=== PATIENT | female | born 1950 | race Caucasian/White ===

== ENCOUNTER 2021-12-05 10:13 | Emergency (ER) | payer OTHER, BC ==
[2021-12-05] MEDS ORDERED: TYLENOL 325 MG PO ONE (10:40)
[2021-12-05] MEDS ORDERED: Sodium Chloride 0.9% 1000 ML 1,000 ML IV STA (10:40)
[2021-12-05] MEDS ORDERED: DECADRON 10MG INJ. IV ONE (10:43)
[2021-12-05 11:01] LABS: Absolute Neutrophil Ct (ANC) 2.75 (1.4-6.9); Basophil (Absolute #) 0.02 (0-0.4); Eosinophil % 0.2 % (0.00-5.0); Eosinophil (Absolute #) 0.01 (0-0.5); Hematocrit 42.5 % (35-47); Hemoglobin 14.8 gm/dl (12.0-16.0); Lymphocytes % 25.1 % (24.0-44.0); Mean Cell Volume 88.7 fl (78-100); Mean Corpuscular Hemoglobin 30.9 pg (26-32); Mean Corpuscular Hgb Concent. 34.8 g/dl (32-36); Mean Platelet Volume 9.1 fl (7.5-11.0); Monocytes % 16.7 % (0.0-12.0); Neutrophil % 57.6 % (36.0-66.0); Platelet Count 306 K/mm3 (150-450); Red Blood Count 4.79 M/mm3 (4.1-5.4); Red Cell Distribution Width 13.2 % (11.5-14.0); White Blood Count 4.8 K/mm3 (4.0-10.5)
--- NOTE | 2021-12-05 11:04 | ERPHSYRPT ---
- History of Present Illness Time Seen by Provider: 12/05/21 10:20 Source: patient Exam Limitations: no limitations Patient Subjective Stated Complaint: "I feel terrible and my stomach hurts." Triage Nursing Assessment: Patient reported new onset of cough, mild dyspnea, abdominal pain with nausea, vomiting, and one episode of diarrhea. Denied chest pain, headache, dizziness, visual disturbances. Symptom onset was 11/24/21 with a positive home COVID test on 11/28/21. She has been around other contacts with similar symptoms. Pupils 3mm bilateral. Oral mucosa pink/dry without ulcerations/lesions. Symmetrical chest expansion. heart tones S1/S2 RRR without extra sounds. Lungs vesicular with adequate airflow. Abdomen obese non-distened with tenderness to the RUQ/RLQ without intentional/unintentional guarding, palpable organomegaly or pulsatile masses. Peripheral puleses +3 bilateral. No noted dependent edema. Physician History: Patient is a 71-year-old female presents to our ED for evaluation of feeling unwell. Patient complains of diffuse abdominal pain associated with nausea and vomiting. Patient states she has been coughing and experiencing shortness of breath. Patient advises that she tested positive for COVID 1 week ago. Patient has been experiencing the symptoms since her Covid diagnosis. Symptoms are progressive. Symptoms are moderate in intensity. No specific worsening or improving factors. Patient denies history of the same. Patient voices no other complaints or concerns at this time. Timing/Duration: week(s) Severity: moderate Modifying Factors: Improves With: nothing Associated Symptoms: nausea, vomiting, abdominal pain, shortness of breath, cough Allergies/Adverse Reactions: No Known Drug Allergies Allergy (Unverified 12/05/21 10:31) Home Medications: Lisinopril/Hydrochlorothiazide [Lisinopril-Hctz 20-25 mg Tab] 1 tab PO DAILY 12/05/21 [History] Hx Tetanus, Diphtheria Vaccination/Date Given: No Hx Influenza Vaccination/Date Given: No Hx Pneumococcal Vaccination/Date Given: No Immunizations Up to Date: No Travel Risk - International Travel Have you traveled outside of the country in past 3 weeks: No - Coronavirus Screening Are you exhibiting any of the following symptoms?: No Symptoms: Cough: New Onset, Vomiting/Diarrhea, Headaches/Body Aches/Fatigue Close contact with a COVID-19 positive Pt in past 14-21 Days: No - Vaccine Status Have you recieved a Covid-19 vaccination: No - Review of Systems Constitutional: No Symptoms, No Fever, No Chills Eyes: No Symptoms Ears, Nose, & Throat: No Symptoms Respiratory: No Symptoms, No Cough, No Dyspnea Cardiac: No Symptoms, No Chest Pain, No Edema, No Syncope Abdominal/Gastrointestinal: No Symptoms, No Abdominal Pain, No Nausea, No Vomiting, No Diarrhea Genitourinary Symptoms: No Symptoms, No Dysuria Musculoskeletal: No Symptoms, No Back Pain, No Neck Pain Skin: No Symptoms, No Rash Neurological: No Symptoms, No Dizziness, No Focal Weakness, No Sensory Changes Psychological: No Symptoms Endocrine: No Symptoms Hematologic/Lymphatic: No Symptoms Immunological/Allergic: No Symptoms All Other Systems: Reviewed and Negative - Past Medical History Cardiac History: Hypertension Endocrine Medical History: Hyperthyroidism - Past Surgical History Musculoskeletal: Orthopedic Surgery Female Surgical History: Hysterectomy Other Surgical History: Partial thyroidectomy - Social History Smoking Status: Never smoker Exposure to second hand smoke: No Drug Use: none Patient Lives Alone: Yes - Nursing Vital Signs Nursing Vital Signs: Initial Vital Signs Temperature 98.5 F 12/05/21 10:14 Pulse Rate 83 12/05/21 10:14 Respiratory Rate 18 12/05/21 10:14 Blood Pressure 130/89 12/05/21 10:14 O2 Sat by Pulse Oximetry 99 12/05/21 10:14 Pain Scale Pain Intensity 2 - Physical Exam General Appearance: no apparent distress, alert Eye Exam: PERRL/EOMI, eyes nml inspection Ears, Nose, Throat Exam: normal ENT inspection, TMs normal, pharynx normal, moist mucous membranes Neck Exam: normal inspection, non-tender, supple, full range of motion Respiratory Exam: normal breath sounds, lungs clear, airway intact, No respiratory distress Cardiovascular Exam: regular rate/rhythm, normal heart sounds, normal peripheral pulses Gastrointestinal/Abdomen Exam: soft, normal bowel sounds, No tenderness, No mass Back Exam: normal inspection, normal range of motion, No CVA tenderness, No vertebral tenderness Extremity Exam: normal inspection, normal range of motion, pelvis stable Neurologic Exam: alert, oriented x 3, cooperative, normal mood/affect, nml cerebellar function, nml station & gait, sensation nml, No motor deficits Skin Exam: normal color, warm, dry, No rash Lymphatic Exam: No adenopathy SpO2 Interpretation: normal SpO2: 99 O2 Delivery: Room Air - Course Nursing assessment & vital signs reviewed: Yes EKG Interpreted by Me: RATE (77), Sinus Rhythm, NORMAL AXIS, NORMAL INTERVALS - Radiology Exams Chest X-ray Interpretation: Teleradiologist Report (Right base calcified granuloma. Remaining heart and lungs unremarkable. Bony thorax intact with osteopenia. D egenerative changes and left shoulder surgery.) - CT Exams Abdomen/Pelvis CT Interpretation: Tele-radiologist Report (Mild distended gallbladder. Small hiatal hernia sigmoid diverticulosis chronic bony findings and old granulomatous disease. Remaining CT abdomen pelvis without contrast exam is negative) - Radiology Ultrasound Exam Gallbladder Ultrasound: tele radiology report (Gallbladder normally distended no gallstones. No wall thickening or pericholecystic fluid. Common bile duct measures 6 mm. No intrahepatic biliary distention.) Ordered Tests: Active Orders 24 hr Category Date Time Status EKG-ER Only STAT Care 12/05/21 10:40 Active IV Insertion STAT Care 12/05/21 10:40 Active ABDOMEN AND PELVIS W/0 CONTRAS [CT] Stat Exams 12/05/21 10:40 Completed CHEST 1 VIEW (PORTABLE) Stat Exams 12/05/21 10:40 Completed GALLBLADDER [US] Stat Exams 12/05/21 12:15 Completed CBC W DIFF Stat Lab 12/05/21 10:52 Completed CMP Stat Lab 12/05/21 10:52 Completed COVID AG-BINAX NOW RAPID TEST Stat Lab 12/05/21 13:40 Received LIPASE Stat Lab 12/05/21 10:52 Completed TROPONIN Q3H Lab 12/05/21 10:52 Completed TROPONIN Q3H Lab 12/05/21 13:40 Completed TROPONIN Q3H Lab 12/05/21 16:45 Ordered TROPONIN Q3H Lab 12/05/21 19:45 Ordered TROPONIN Q3H Lab 12/05/21 22:45 Ordered UA W/RFX UR CULTURE Stat Lab 12/05/21 10:40 Ordered Medication Summary Discontinued Medications Generic Name Dose Route Start Last Admin Trade Name Freq PRN Reason Stop Dose Admin Acetaminophen 975 mg 12/05/21 10:40 12/05/21 11:11 Acetaminophen 325 Mg Tablet PO 12/05/21 10:41 975 mg STAT ONE Administration Acetaminophen Confirm 12/05/21 11:08 Acetaminophen 325 Mg Tablet Administered 12/05/21 11:09 Dose 975 mg .ROUTE .STK-MED ONE Dexamethasone Sodium Phosphate 8 mg 12/05/21 10:43 12/05/21 11:11 Dexamethasone Sod Phosphate 10 Mg/Ml IV 12/05/21 10:44 8 mg STAT ONE Administration Dexamethasone Sodium Phosphate Confirm 12/05/21 11:08 Dexamethasone Sod Phosphate 10 Mg/Ml Administered 12/05/21 11:09 Dose 10 mg .ROUTE .STK-MED ONE Sodium Chloride 1,000 mls @ 999 mls/hr 12/05/21 10:40 12/05/21 12:17 Sodium Chloride 0.9% 1000 Ml IV 12/05/21 11:40 Infused .Q1H1M STA Infusion Sodium Chloride Confirm 12/05/21 11:08 Sodium Chloride 0.9% 1000 Ml Administered 12/05/21 11:09 Dose 1,000 mls @ ud .ROUTE .STK-MED ONE Ondansetron HCl 4 mg 12/05/21 11:07 12/05/21 11:11 Ondansetron Hcl 4 Mg/2 Ml Vial IV 12/05/21 11:08 4 mg STAT ONE Administration Ondansetron HCl Confirm 12/05/21 11:08 Ondansetron Hcl 4 Mg/2 Ml Vial Administered 12/05/21 11:09 Dose 4 mg .ROUTE .STK-MED ONE Lab/Rad Data: Laboratory Result Diagrams 12/05/21 10:52 12/05/21 10:52 Laboratory Results 12/05/21 12/05/21 12/05/21 Range/Units 13:40 10:52 10:52 WBC (4.0-10.5) K/mm3 RBC (4.1-5.4) M/mm3 Hgb (12.0-16.0) gm/dl Hct (35-47) % MCV (78-100) fl MCH (26-32) pg MCHC (32-36) g/dl RDW (11.5-14.0) % Plt Count (150-450) K/mm3 MPV (7.5-11.0) fl Gran % (36.0-66.0) % Eos # (Auto) (0-0.5) Absolute Lymphs (auto) (1.0-4.6) Absolute Monos (auto) (0.0-1.3) Lymphocytes % (24.0-44.0) % Monocytes % (0.0-12.0) % Eosinophils % (0.00-5.0) % Basophils % (0.0-0.4) % Absolute Granulocytes (1.4-6.9) Basophils # (0-0.4) Sodium (137-145) mmol/L Potassium (3.5-5.1) mmol/L Chloride (98-107) mmol/L Carbon Dioxide (22-30) mmol/L Anion Gap (5-15) MEQ/L BUN (7-17) mg/dL Creatinine (0.52-1.04) mg/dL Estimated GFR ML/MIN Glucose (74-106) mg/dL Calcium (8.4-10.2) mg/dL Total Bilirubin (0.2-1.3) mg/dL AST (14-36) U/L ALT (0-35) U/L Alkaline Phosphatase (38-126) U/L Troponin I < 0.012 < 0.012 (0.000-0.034) ng/mL Serum Total Protein (6.3-8.2) g/dL Albumin (3.5-5.0) g/dL Lipase 97 (23-300) U/L 12/05/21 12/05/21 Range/Units 10:52 10:52 WBC 4.8 (4.0-10.5) K/mm3 RBC 4.79 (4.1-5.4) M/mm3 Hgb 14.8 (12.0-16.0) gm/dl Hct 42.5 (35-47) % MCV 88.7 (78-100) fl MCH 30.9 (26-32) pg MCHC 34.8 (32-36) g/dl RDW 13.2 (11.5-14.0) % Plt Count 306 (150-450) K/mm3 MPV 9.1 (7.5-11.0) fl Gran % 57.6 (36.0-66.0) % Eos # (Auto) 0.01 (0-0.5) Absolute Lymphs (auto) 1.20 (1.0-4.6) Absolute Monos (auto) 0.80 (0.0-1.3) Lymphocytes % 25.1 (24.0-44.0) % Monocytes % 16.7 H (0.0-12.0) % Eosinophils % 0.2 (0.00-5.0) % Basophils % 0.4 (0.0-0.4) % Absolute Granulocytes 2.75 (1.4-6.9) Basophils # 0.02 (0-0.4) Sodium 131 L (137-145) mmol/L Potassium 3.9 (3.5-5.1) mmol/L Chloride 95 L (98-107) mmol/L Carbon Dioxide 21 L (22-30) mmol/L Anion Gap 18.5 H (5-15) MEQ/L BUN 17 (7-17) mg/dL Creatinine 0.97 (0.52-1.04) mg/dL Estimated GFR > 60.0 ML/MIN Glucose 124 H (74-106) mg/dL Calcium 9.8 (8.4-10.2) mg/dL Total Bilirubin 1.40 H (0.2-1.3) mg/dL AST 28 (14-36) U/L ALT 21 (0-35) U/L Alkaline Phosphatase 102 (38-126) U/L Troponin I (0.000-0.034) ng/mL Serum Total Protein 7.4 (6.3-8.2) g/dL Albumin 4.5 (3.5-5.0) g/dL Lipase (23-300) U/L - Progress Progress: improved Progress Note: Patient reassessed. She is well. Covid test negative. Patient is ready for discharge. CT abdomen pelvis negative. Chest x-ray essentially nonremarkable. IV fluids infused to address the hyponatremia. No further work-up indicated. Patient agrees to follow-up with primary care doctor within 48 hours for evaluation. Portions of this note were created with voice recognition technology. There may be grammatical, spelling, punctuation or sound alike errors 12/05/21 14:28 Counseled pt/family regarding: lab results, diagnosis, rad results - Departure Departure Disposition: Observation Clinical Impression: Hyponatremia, Total bilirubin, elevated, Abdominal pain, Small hiatal hernia, Right axillary calcified lymph node, Diverticulosis, Osteopenia, Arthritis of spine, Lung granuloma, Viral syndrome Condition: Stable Critical Care Time: No Referrals: NATHALIE JONES [NON-STAFF PHY W/O PRIVILEGES] - Follow up/PCP as directed Instructions: Acute Abdomen (Belly Pain), Adult (DC) Additional Instructions: Discharge/Care Plan FRITZ VILA was seen on 12/05/21 in the Emergency Room. The patient was counseled regarding Diagnosis,Lab results, Imaging studies, need for follow up and when to return to the Emergency Room. Prescriptions given: Discharge Note I have spoken with the patient and/or caregivers. I have explained the patient's condition, diagnosis and treatment plan based on the information available to me at this time. I have answered the patient's and/or caregiver's questions and addressed any concerns. The patient and/or caregivers have as good understanding of the patient's diagnosis, condition and treatment plan as can be expected at this point. The vital signs have been stable. The patient's condition is stable and appropriate for discharge from the emergency department. The patient will pursue further outpatient evaluation with the primary care physician or other designated or consulting physician as outlined in the discharge instructions. The patient and/or caregivers are agreeable to this plan of care and follow-up instructions have been explained in detail. The patient and/or caregivers have received these instruction. The patient/and or caregivers are aware that any significant change in condition or worsening of symptoms should prompt an immediate return to this or the closest emergency department or call 911.
[2021-12-05] MEDS ORDERED: Zofran 4 MG/2 ML VIAL IV ONE (11:07)
[2021-12-05] MEDS ORDERED: Zofran 4 MG/2 ML VIAL ONE (11:08)
[2021-12-05] MEDS ORDERED: TYLENOL 325 MG ONE (11:08)
[2021-12-05] MEDS ORDERED: Sodium Chloride 0.9% 1000 ML 1,000 ML ONE (11:08)
[2021-12-05] MEDS ORDERED: DECADRON 10MG INJ. ONE (11:08)
[2021-12-05 11:14] LABS: ALBUMIN 4.5 g/dL (3.5-5.0); ALKALINE PHOSPHATASE 102 U/L (38-126); ANION GAP 18.5 MEQ/L (5-15); BLOOD UREA NITROGEN 17 mg/dL (7-17); CHLORIDE 95 mmol/L (98-107); Calcium 9.8 mg/dL (8.4-10.2); Carbon Dioxide 21 mmol/L (22-30); Creatinine 1 0.97 mg/dL (0.52-1.04); EST GLOMERULAR FILTRATION RATE > 60.0 ML/MIN; Glucose 124 mg/dL (74-106); Potassium 3.9 mmol/L (3.5-5.1); SGOT/AST 28 U/L (14-36); SGPT/ALT 21 U/L (0-35); SODIUM 131 mmol/L (137-145); Total Protein 7.4 g/dL (6.3-8.2)
--- NOTE | 2021-12-05 11:42 | XRAY ---
Indication: Cough 12 days. Comparison: None Portable apical lordotic chest demonstrates small right base calcified granuloma. Remaining heart and lungs unremarkable. Bony thorax intact with osteopenia, degenerative changes, and left shoulder surgery.
--- NOTE | 2021-12-05 11:48 | XRAY ---
Indication: Right abdomen pain 12 days. Intermittent diarrhea. Multiple contiguous axial images obtained through the abdomen and pelvis without contrast. Comparison: None Lung bases demonstrates minimal subsegmental atelectasis/scarring. No infiltrate or effusion. Heart is not enlarged. Small hiatal hernia. 1.2 cm chunky right axilla calcified node presumed granulomatous. Noncontrasted stomach and bowel loops appear nonobstructed with normal appendix. Minimal sigmoid diverticulosis without diverticulitis. Previous hysterectomy. No free fluid/air. Gallbladder mildly distended without gallstones or biliary distention. Tiny splenic calcified granulomas. Remaining liver, gallbladder, pancreas, spleen, adrenal glands, kidneys, ureters, and bladder are unremarkable for noncontrast exam. Moderate scattered aortoiliac calcifications without AAA. Osseous structures intact with mild osteopenia, mild/moderate multilevel thoracolumbar degenerative spondylosis, and minimal levoscoliosis centered at L2. Impression: 1. Mild distended gallbladder. Sonogram may yield further information if clinically warranted. 2. Small hiatal hernia, sigmoid diverticulosis, chronic bony findings, and old granulomatous disease. 3. Remaining CT abdomen/pelvis without contrast exam is negative.
--- NOTE | 2021-12-05 12:57 | XRAY ---
Indication: Right upper quadrant pain. Nausea and vomiting Two-dimensional gallbladder sonogram performed. Comparison: None Gallbladder normally distended without gallstones, wall thickening, or pericholecystic fluid. Common bile duct measures 6 mm. No intrahepatic biliary distention. Remaining visualized liver, pancreas, and right kidney are sonographically unremarkable. No ascites. Right kidney measures 11.5 cm in length. Impression: Negative gallbladder sonogram.
[2021-12-05 13:55] VITALS: BP 131/87; PULSE 80
[2021-12-05 14:29] LABS: COVID AG -BINAX NOW RAPID TEST NEGATIVE (NEGATIVE)
[2021-12-05 14:30] VITALS: O2SAT 99
== END 2021-12-05 14:24 | disposition home or self-care (01) ==
LOC: ED 10:13
DX: B34.9 Viral infection, unspecified (principal); E87.1 Hypo-osmolality and hyponatremia; E80.6 Other disorders of bilirubin metabolism; R10.9 Unspecified abdominal pain; K44.9 Diaphragmatic hernia without obstruction or gangrene; I89.8 Other specified noninfective disorders of lymphatic vessels and lymph nodes; K57.30 Diverticulosis of large intestine without perforation or abscess without bleeding; M85.88 Other specified disorders of bone density and structure, other site; M47.819 Spondylosis without myelopathy or radiculopathy, site unspecified; J84.10 Pulmonary fibrosis, unspecified; R11.2 Nausea with vomiting, unspecified; R05.9 Cough, unspecified; R06.02 Shortness of breath; I10 Essential (primary) hypertension; Z79.899 Other long term (current) drug therapy
CPT/HCPCS: 36000; 36415; 71045; 74176; 76705; 80053; 83690; 84484; 85025; 93005; 96360; 96374; 96375; 99000; 99285; J1100; J2405; A9270-GY

== ENCOUNTER 2024-05-28 18:57 | Emergency (ER) | payer OTHER, BC ==
[2024-05-28 19:37] VITALS: TEMP 97.5
[2024-05-28 19:40] LABS: Absolute Neutrophil Ct (ANC) 4.34 x10^3/uL (1.56-6.13); BASOPHIL % 1.4 % (0.1-1.2); Eosinophil % 2.5 % (0.7-5.8); Eosinophil (Absolute #) 0.18 x10^3/uL (0.04-0.36); Hematocrit 38.7 % (34.1-44.9); Hemoglobin 12.8 g/dL (11.2-15.7); IMMATURE GRAN # 0.03 x10^3u/L (0.001-0.031); IMMATURE GRAN % 0.4 % (0.001-0.429); Lymphocyte (Absolute #) 1.88 x10^3/uL (1.18-3.74); Lymphocytes % 26.4 % (19.3-51.7); Mean Cell Volume 91.9 fL (79.4-94.8); Mean Corpuscular Hemoglobin 30.4 pg (25.6-32.2); Mean Corpuscular Hgb Concent. 33.1 g/dL (32.2-35.5); Mean Platelet Volume 9.3 fL (9.4-12.3); Monocyte (Absolute #) 0.58 x10^3/uL (0.24-0.86); Monocytes % 8.2 % (4.7-12.5); Neutrophil % 61.1 % (34.0-71.1); Platelet Count 212 x10^3/uL (182-369); Red Blood Count 4.21 x10^6/uL (3.93-5.22); Red Cell Distribution Width 14.1 % (11.7-14.4); White Blood Count 7.1 x10^3/uL (3.98-10.04)
[2024-05-28 19:53] LABS: ALBUMIN 4.2 g/dL (3.5-5.0); ANION GAP 10.9 MEQ/L (5-15); BILIRUBIN,TOTAL 0.7 mg/dL (0.2-1.3); Calcium 9.6 mg/dL (8.4-10.2); Creatinine 1 0.72 mg/dL (0.52-1.04); EST GLOMERULAR FILTRATION RATE 89.3 ML/MIN; Potassium 3.5 mmol/L (3.5-5.1); Total Protein 6.9 g/dL (6.3-8.2)
--- NOTE | 2024-05-28 19:55 | ERPHSYRPT ---
- History of Present Illness Time Seen by Provider: 05/28/24 19:30 Source: patient Exam Limitations: no limitations Patient Subjective Stated Complaint: pt states that while at work she felt her legs begin to swell Triage Nursing Assessment: pt ambulated into the er; pt is axo x4; c/o swelling; pt denies pain; non-pitting edema present to BLE; strong jose radial pulses; strong jose pedal pulses; clear apical heart tone; clear lung sounds in all l obes; no respiratory distress present; hypertensive Physician History: 73-year-old female presents to our ED for evaluation of leg swelling. Patient states that she has not taken her blood pressure medication in several days. Today while at work patient observed leg swelling. No associated chest pain or shortness of breath. No nausea vomiting or diaphoresis. Symptoms have been progressive. Symptoms are moderate in intensity. No specific worsening or improving factors. Patient denies history of the same. She has no other complaints or symptoms at this time. Family at bedside. They voiced no other complaints or concerns at this time. Portions of this note were created with voice recognition technology. There may be grammatical, spelling, punctuation or sound alike errors Timing/Duration: today Severity: moderate Modifying Factors: Improves With: nothing Associated Symptoms: denies symptoms Allergies/Adverse Reactions: No Known Drug Allergies Allergy (Verified 05/28/24 19:21) Home Medications: Lisinopril/Hydrochlorothiazide [Lisinopril-Hctz 20-25 mg Tab] 1 tab PO DAILY 12/05/21 [History] Hx Tetanus, Diphtheria Vaccination/Date Given: No Hx Influenza Vaccination/Date Given: No Hx Pneumococcal Vaccination/Date Given: No Travel Risk - International Travel Have you traveled outside of the country in past 3 weeks: No - Emerging Infectious Disease Are you exhibiting symptoms associated with any current EIDs: No - Review of Systems Constitutional: No Symptoms, No Fever, No Chills Eyes: No Symptoms Ears, Nose, & Throat: No Symptoms Respiratory: No Symptoms, No Cough, No Dyspnea Cardiac: No Symptoms, No Chest Pain, No Edema, No Syncope Abdominal/Gastrointestinal: No Symptoms, No Abdominal Pain, No Nausea, No Vomiting, No Diarrhea Genitourinary Symptoms: No Symptoms, No Dysuria Musculoskeletal: No Symptoms, No Back Pain, No Neck Pain Skin: No Symptoms, No Rash Neurological: No Symptoms, No Dizziness, No Focal Weakness, No Sensory Changes Psychological: No Symptoms Endocrine: No Symptoms Hematologic/Lymphatic: No Symptoms Immunological/Allergic: No Symptoms All Other Systems: Reviewed and Negative - Past Medical History Pertinent Past Medical History: Yes Cardiac History: Hypertension Endocrine Medical History: Hyperthyroidism - Past Surgical History Past Surgical History: Yes Musculoskeletal: Orthopedic Surgery Female Surgical History: Hysterectomy Other Surgical History: Partial thyroidectomy, shoulder, rotar cuff, partical thyroid ectomy - Social History Smoking Status: Never smoker Exposure to second hand smoke: No Drug Use: none Patient Lives Alone: Yes - Social Determinants of Health Will the patient participate in the screening: Yes Do you worry about a steady place to live?: No Do you have any problems with any of the following?: No known problems In the past 12 months,have you had to go without utilities?: No Transportation Issues: No Has anyone in your support network made you feel unsafe?: No Have you or anyone in your house had to go without enough: No - Nursing Vital Signs Nursing Vital Signs: Initial Vital Signs Temperature 97.5 F 05/28/24 19:22 Pulse Rate 79 05/28/24 19:22 Respiratory Rate 20 05/28/24 19:22 Blood Pressure 178/87 05/28/24 19:22 O2 Sat by Pulse Oximetry 97 05/28/24 19:22 Pain Scale Pain Intensity 0 - Physical Exam General Appearance: no apparent distress, alert Eye Exam: PERRL/EOMI, eyes nml inspection Ears, Nose, Throat Exam: normal ENT inspection, TMs normal, pharynx normal, moist mucous membranes Neck Exam: normal inspection, non-tender, supple, full range of motion Respiratory Exam: normal breath sounds, lungs clear, No respiratory distress Cardiovascular Exam: regular rate/rhythm, normal heart sounds, normal peripheral pulses Gastrointestinal/Abdomen Exam: soft, normal bowel sounds, No tenderness, No mass Back Exam: normal inspection, normal range of motion, No CVA tenderness, No vertebral tenderness Extremity Exam: normal inspection, normal range of motion, pelvis stable, other (Negative Homans' sign bilaterally. 1+ pitting edema bilaterally. The involved extremities are both neurovascular intact distally compartments are soft cap refill less than 2 seconds. No signs of trauma.) Neurologic Exam: alert, oriented x 3, cooperative, normal mood/affect, sensation nml, No motor deficits Skin Exam: normal color, warm, dry, No rash Lymphatic Exam: No adenopathy SpO2 Interpretation: normal SpO2: 97 O2 Delivery: Room Air - Course Nursing assessment & vital signs reviewed: Yes EKG Interpreted by Me: RATE (73), Sinus Rhythm, NORMAL AXIS, NORMAL INTERVALS, NORMAL QRS - Radiology Exams Chest X-ray Interpretation: Teleradiologist Report (Chest x-ray reveals lung nodules that require CT follow-up. This was conveyed to the patient and her daughter. Otherwise no acute findings on chest x-ray) Ordered Tests: Active Orders 24 hr Category Date Time Status Hydrochloric Acid Operator STAT Care 05/28/24 19:23 Active EKG-ER Only STAT Care 05/28/24 19:23 Active IV Insertion STAT Care 05/28/24 19:23 Active Pulse Oximetry (ED) STAT Care 05/28/24 19:23 Active CHEST 1 VIEW (PORTABLE) Stat Exams 05/28/24 19:36 Completed CBC W DIFF Stat Lab 05/28/24 19:30 Completed CMP Stat Lab 05/28/24 19:30 Completed NT PRO BNPII Stat Lab 05/28/24 19:30 Completed TROPONIN Q4H Lab 05/28/24 19:30 Completed TROPONIN Q4H Lab 05/28/24 21:43 Completed TROPONIN Q4H Lab 05/29/24 03:30 Ordered UA W/RFX UR CULTURE Stat Lab 05/28/24 21:30 Completed Lab/Rad Data: Laboratory Result Diagrams 05/28/24 19:30 05/28/24 19:30 Laboratory Results 05/28/24 05/28/24 05/28/24 Range/Units 21:43 21:30 19:30 WBC (3.98-10.04) x10^3/uL RBC (3.93-5.22) x10^6/uL Hgb (11.2-15.7) g/dL Hct (34.1-44.9) % MCV (79.4-94.8) fL MCH (25.6-32.2) pg MCHC (32.2-35.5) g/dL RDW (11.7-14.4) % Plt Count (182-369) x10^3/uL MPV (9.4-12.3) fL Gran % (34.0-71.1) % Immature Gran % (Auto) (0.001-0.429) % Nucleat RBC Rel Count (0.00-0.2) % Eos # (Auto) (0.04-0.36) x10^3/uL Immature Gran # (Auto) (0.001-0.031) x10^3u/L Absolute Lymphs (auto) (1.18-3.74) x10^3/uL Absolute Monos (auto) (0.24-0.86) x10^3/uL Absolute Nucleated RBC (0.00-0.012) x10^3u/L Lymphocytes % (19.3-51.7) % Monocytes % (4.7-12.5) % Eosinophils % (0.7-5.8) % Basophils % (0.1-1.2) % Absolute Granulocytes (1.56-6.13) x10^3/uL Basophils # (0.01-0.08) x10^3/uL Sodium (135-145) mmol/L Potassium (3.5-5.1) mmol/L Chloride (98-107) mmol/L Carbon Dioxide (22-30) mmol/L Anion Gap (5-15) MEQ/L BUN (7-17) mg/dL Creatinine (0.52-1.04) mg/dL Estimated GFR ML/MIN Glucose (74-106) mg/dL Calcium (8.4-10.2) mg/dL Total Bilirubin (0.2-1.3) mg/dL AST (14-36) U/L ALT (0-35) U/L Alkaline Phosphatase (38-126) U/L Troponin I < 0.012 (0.000-0.033) ng/mL NT-Pro-B Natriuret Pep 378 (<300) pg/mL Serum Total Protein (6.3-8.2) g/dL Albumin (3.5-5.0) g/dL Urine Color Yellow (Yellow) Urine Appearance Clear (Clear) Urine pH 6.5 (4.6-8.0) Ur Specific [place] 1.010 (1.005-1.030) Urine Protein Negative (Negative) Urine Glucose (UA) Negative (Negative) mg/dL Urine Ketones Negative (Negative) Urine Blood Negative (Negative) Urine Nitrite Negative (Negative) Urine Bilirubin Negative (Negative) Urine Urobilinogen 0.2 (0.2) mg/dL Ur Leukocyte Esterase Negative (Negative) U Hyaline Cast (Auto) NONE SEEN (0-2) /LPF Urine Microscopic RBC 0-2 (0-5) /HPF Urine Microscopic WBC 0-2 (0-5) /HPF Ur Epithelial Cells None Seen (None Seen) /HPF Urine Bacteria None Seen (None Seen) /HPF Urine Culture Reflexed NO (NO) 05/28/24 05/28/24 05/28/24 Range/Units 19:30 19:30 19:30 WBC 7.1 (3.98-10.04) x10^3/uL RBC 4.21 (3.93-5.22) x10^6/uL Hgb 12.8 (11.2-15.7) g/dL Hct 38.7 (34.1-44.9) % MCV 91.9 (79.4-94.8) fL MCH 30.4 (25.6-32.2) pg MCHC 33.1 (32.2-35.5) g/dL RDW 14.1 (11.7-14.4) % Plt Count 212 (182-369) x10^3/uL MPV 9.3 L (9.4-12.3) fL Gran % 61.1 (34.0-71.1) % Immature Gran % (Auto) 0.4 (0.001-0.429) % Nucleat RBC Rel Count 0.0 (0.00-0.2) % Eos # (Auto) 0.18 (0.04-0.36) x10^3/uL Immature Gran # (Auto) 0.03 (0.001-0.031) x10^3u/L Absolute Lymphs (auto) 1.88 (1.18-3.74) x10^3/uL Absolute Monos (auto) 0.58 (0.24-0.86) x10^3/uL Absolute Nucleated RBC 0.00 (0.00-0.012) x10^3u/L Lymphocytes % 26.4 (19.3-51.7) % Monocytes % 8.2 (4.7-12.5) % Eosinophils % 2.5 (0.7-5.8) % Basophils % 1.4 H (0.1-1.2) % Absolute Granulocytes 4.34 (1.56-6.13) x10^3/uL Basophils # 0.10 H (0.01-0.08) x10^3/uL Sodium 140 (135-145) mmol/L Potassium 3.5 (3.5-5.1) mmol/L Chloride 109 H (98-107) mmol/L Carbon Dioxide 24 (22-30) mmol/L Anion Gap 10.9 (5-15) MEQ/L BUN 13 (7-17) mg/dL Creatinine 0.72 (0.52-1.04) mg/dL Estimated GFR 89.3 ML/MIN Glucose 109 H (74-106) mg/dL Calcium 9.6 (8.4-10.2) mg/dL Total Bilirubin 0.70 (0.2-1.3) mg/dL AST 28 (14-36) U/L ALT 31 (0-35) U/L Alkaline Phosphatase 98 (38-126) U/L Troponin I < 0.012 (0.000-0.033) ng/mL NT-Pro-B Natriuret Pep (<300) pg/mL Serum Total Protein 6.9 (6.3-8.2) g/dL Albumin 4.2 (3.5-5.0) g/dL Urine Color (Yellow) Urine Appearance (Clear) Urine pH (4.6-8.0) Ur Specific [place] (1.005-1.030) Urine Protein (Negative) Urine Glucose (UA) (Negative) mg/dL Urine Ketones (Negative) Urine Blood (Negative) Urine Nitrite (Negative) Urine Bilirubin (Negative) Urine Urobilinogen (0.2) mg/dL Ur Leukocyte Esterase (Negative) U Hyaline Cast (Auto) (0-2) /LPF Urine Microscopic RBC (0-5) /HPF Urine Microscopic WBC (0-5) /HPF Ur Epithelial Cells (None Seen) /HPF Urine Bacteria (None Seen) /HPF Urine Culture Reflexed (NO) - Progress Progress: improved Progress Note: 73-year-old female presents to emergency department for evaluation of leg swelling. Physical exam shows some swelling of her legs. Homans' sign negative bilaterally. Both lower extremities neurovascular tact distally compartments are soft cap refill less than 2 seconds. Workup essentially nonremarkable. Troponin negative x 2. Chest x-ray reveals lung nodules which require outpatient follow-up. This was conveyed to our patient and her daughter they agreed to follow-up with her primary care doctor for outpatient CAT scan to further assess the lung nodules. Furthermore patient has been off of her blood pressure medication hydrochlorothiazide lisinopril combination. Patient has not taken her medications for couple weeks as she has run out and did not follow-up with her primary care doctor to obtain a refill. I gave her 1 week refill of her medications. However she will follow-up with her primary care doctor for refill as well as CAT scan and further evaluation of leg swelling. Patient feels well at this time she is asymptomatic. Patient that she is ready for discharge. She voices no other complaints or concerns at this time. Portions of this note were created with voice recognition technology. There may be grammatical, spelling, punctuation or sound alike errors Complexity problem addressed is moderate acute complicated. No critical care time. Complexity of data reviewed and analyzed is moderate. Test ordered test reviewed results analyzed and correlated clinically with history and physical exam. Risk complication and or risk of morbidity/mortality patient management is moderate. Patient received medication refill. Vital stable. Time spent to discharge patient is approximately 20 minutes. Plan of care established for shared decision making. No social determinants of health present impede follow- up. Portions of this note were created with voice recognition technology. There may be grammatical, spelling, punctuation or sound alike errors 05/28/24 23:11 Counseled pt/family regarding: lab results, diagnosis, need for follow-up, rad results - Departure Departure Disposition: Home Clinical Impression: Leg swelling, Medication refill, Lung nodule Condition: Stable Critical Care Time: No Referrals: MAJOR GIMENEZ [Primary Care Provider] - Follow up/PCP as directed Additional Instructions: Your chest x-ray reveals lung nodules that will require follow-up on an outpatient basis. You will require a CAT scan to follow-up on the nodules. Please follow-up with your family doctor to obtain further imaging studies Discharge/Care Plan FRITZ VILA was seen on 05/28/24 in the Emergency Room. The patient was counseled regarding Diagnosis,Lab results, Imaging studies, need for follow up and when to return to the Emergency Room. Prescriptions given: Discharge Note I have spoken with the patient and/or caregivers. I have explained the patient's condition, diagnosis and treatment plan based on the information available to me at this time. I have answered the patient's and/or caregiver's questions and addressed any concerns. The patient and/or caregivers have as good understanding of the patient's diagnosis, condition and treatment plan as can be expected at this point. The vital signs have been stable. The patient's condition is stable and appropriate for discharge from the emergency department. The patient will pursue further outpatient evaluation with the primary care physician or other designated or consulting physician as outlined in the discharge instructions. The patient and/or caregivers are agreeable to this plan of care and follow-up instructions have been explained in detail. The patient and/or caregivers have received these instruction. The patient/and or caregivers are aware that any significant change in condition or worsening of symptoms should prompt an immediate return to this or the closest emergency department or call 911. Prescriptions: Lisinopril/Hydrochlorothiazide [Lisinopril-Hctz 20-25 mg Tab] 1 each PO DAILY 7 Days #7 tablet
[2024-05-28 21:43] LABS: Appearance Clear (Clear); Bacteria None Seen /HPF (None Seen); Bilirubin Negative (Negative); Blood Negative (Negative); Epithelial Cells None Seen /HPF (None Seen); Glucose, Urine Negative (Negative); Hyaline Casts NONE SEEN /LPF (0-2); Ketones Negative (Negative); Leukocyte Esterase Negative (Negative); Nitrite Negative (Negative); Ph 6.5 (4.6-8.0); Protein,Urine Dip Negative (Negative); RBC 0-2 /HPF (0-5); Urobilinogen 0.2 mg/dL (0.2); WBC 0-2 /HPF (0-5)
[2024-05-28 21:44] LABS: ADD URINE CULTURE? NO (NO)
--- NOTE | 2024-05-28 22:52 | XRAY ---
CLINICAL HISTORY: cough COMPARISON: 12/05/2021. TECHNIQUE: An X-ray examination of the chest was performed in AP 1 view. FINDINGS: Rotated patient. Small nodular opacities are noted at both lower zones on the right side. Enlarged heart size is likely projectional. Cardiophrenic and costophrenic angles are clear. Osteopenic bones. Visualized bones are intact. A rotator cuff anchor suture is noted at the left humeral head. IMPRESSION: Comparatively slightly exaggerated small nodular opacities at both lower zones more on the right side. CT scan is suggested for further evaluation. Electronically Signed by: Renny Rico MD. (05/28/2024 22:49:12 EDT)
[2024-05-28 23:10] VITALS: O2SAT 97
[2024-05-28 23:22] VITALS: BP 138/76; PULSE 82; RESP 20
== END 2024-05-28 23:16 | disposition home or self-care (01) ==
LOC: ED 18:57
DX: M79.89 Other specified soft tissue disorders (principal); R91.1 Solitary pulmonary nodule; Z76.0 Encounter for issue of repeat prescription; I10 Essential (primary) hypertension; Z79.899 Other long term (current) drug therapy
CPT/HCPCS: 36000; 36415; 71045; 80053; 81001; 83880; 84484; 85025; 93005; 93041; 94760; 99284